=== PATIENT | female | born 1990 | race Caucasian/White ===

== ENCOUNTER → 2016-09-25 | Outpatient (CLI) | payer OTHER ==
[~2016-09-25] MED LIST: IRON PO; METH1CHW PO; MULT-506 PO; VITAMIN B12 PO
--- NOTE | 2016-09-25 16:35 | DIAGNOSTIC IMAGING REPORT ---
RIGHT KNEE 4 OR MORE CLINICAL HISTORY: RIGHT KNEE PAIN Right COMPARISON STUDY: None. FINDINGS: No fracture or dislocation within the right knee. Soft tissues are unremarkable. Cartilage spaces are maintained. Probable trace knee effusion. IMPRESSION: No fractures within the right knee. Suspect a trace knee effusion. Electronically signed by: Emmanuel Pike M.D. 09/25/2016 4:33 PM Dictated Date/Time: 09/25/2016 4:31 PM
== END | disposition home or self-care (01) ==
LOC: C.RDSM 09:20
PROVIDERS: ATTEND Internal Medicine
DX: M25.561 Pain in right knee (principal)

== ENCOUNTER → 2016-09-26 | Outpatient (CLI) | payer OTHER ==
--- NOTE | 2016-09-26 20:04 | DIAGNOSTIC IMAGING REPORT ---
MRI OF THE RIGHT KNEE WITHOUT CONTRAST CLINICAL HISTORY: Lateral right knee pain following injury. Positive Fran's. COMPARISON STUDY: Right knee radiographs September 25, 2016. TECHNIQUE: Utilizing a 1.5 Rere magnet and dedicated coil, multiplanar, multiecho imaging of the right knee was performed without intravenous or intraarticular contrast. FINDINGS: Alignment of the right knee is anatomic. Extensor mechanism is intact. There is a trace joint effusion. No loose bodies are identified. The cruciate and collateral ligaments are intact. The medial meniscus is intact. There is no medial meniscal tear. The inferior periphery of the posterior horn of the lateral meniscus is truncated. An intrasubstance tear is not identified. There is mild cartilage signal abnormality within the patellofemoral compartment. There is minimal cartilage signal abdomen within the lateral compartment. No mass or fluid collection shown adjacent to the right knee. There is minimal edema within the soft tissues adjacent to the distal right femur, a nonspecific finding. There may be minimal edema between the proximal right tibia and fibula. IMPRESSION: 1. Intact cruciate and collateral ligaments of the right knee. 2. Truncation of the posterior horn of the lateral meniscus, as described above. This is probably within normal limits. A meniscal tear could appear similar although is considered less likely. No definite meniscal tear. 3. Mild chondrosis within the lateral and patellofemoral compartments. 4. Trace joint effusion. Electronically signed by: Toby Cheng M.D. 09/26/2016 8:01 PM Dictated Date/Time: 09/26/2016 7:49 PM
== END | disposition home or self-care (01) ==
LOC: C.MRI 18:43
PROVIDERS: ATTEND Internal Medicine
DX: M25.561 Pain in right knee (principal)

== ENCOUNTER → 2016-10-06 | Day surgery (SDC) | payer OTHER ==
[2016-10-05 08:44] VITALS: Ht 177.8 cm; Wt 67.3 kg
[~2016-10-06] VITALS: Ht 177.8 cm; Wt 67.3 kg
[~2016-10-06] MED LIST changes: +ATROPINE SULFATE 0.1 MG/ML 5ML SYR IV PRN; +BUPIVACAINE/EPINEPHRINE 0.5% MPF 1:200,000 30 ML VIAL ONE; +CEFAZOLIN 2000 MG/60 ML D5W IV SCH; +DEXAMETHASONE SOD INJ 4 MG/ML VIAL ONE; +EpHEDrine SULFATE INJ 50 MG/ML AMP IV PRN; +FENTANYL CITRATE INJ 50 MCG/1 ML 2 ML VIAL IV PRN; +FENTANYL CITRATE INJ 50 MCG/1 ML 2 ML VIAL ONE; +FLUMAZENIL 0.1 MG/1 ML 10 ML VIAL IV PRN; +HYDROmorphone INJ 1 MG/ML SYR ONE; +HYDROmorphone INJ 2 MG/ML SYR/VIAL IV PRN; +KETOROLAC TROMETHAMINE 30 MG/ML VIAL ONE; +LABETALOL HCL IV 5 MG/ML 20ML IV PRN; +LACTATED RINGER'S 1000ML 1,000 ML IV SCH; +LIDOCAINE HCL 2% 2 ML VIAL (20MG/ML) ONE; -METH1CHW PO; +MIDAZOLAM HCL 1 MG/ML 2ML VIAL ONE; +MoRPHine SULFATE PF 1 MG/ML 10 ML AMP/VIAL ONE; +NALOXONE HCL 0.4 MG/1 ML VIAL/CARP IV PRN; +ONDANSETRON INJ 2 MG/ML 2 ML VIAL IV PRN; +ONDANSETRON INJ 2 MG/ML 2 ML VIAL ONE; +PHENYLEPHRINE 100MCG/ML 5ML SYR IV PRN; +PROPOFOL IV EMULSION 10 MG/ML 20 ML VIAL IV ONE; +SODIUM CHLORIDE 0.9% 1000ML 1,000 ML IV SCH
--- NOTE | 2016-10-06 07:26 | History & Physical Bridge Note ---
H&P Re-Evaluation Bridge Note: I have examined the patient, reviewed the History & Physical and in the interval since the performance of the History & Physical I have noted the following changes of clinical significance: No changes noted. Advised that if meniscus is not surgically torn hopefully she will not continue with pain as this would be a biomechanical/training issue.
--- NOTE | 2016-10-06 07:28 | Discharge Instructions ---
Discharge Instructions Visit Reason for Visit: Right Knee Lateral Meniscus Tear Discharge Discharge Diagnosis / Problem: joint dyfunction/meniscus degeneration Discharge Goals Goal(s): Decrease discomfort, Improve function Medications Stopped Medications Name(s): na Restart Stopped Medication(s): use scripts as directed Activity Recommendations Activity Limitations: as noted below Lifting Limitations: until after follow-up appointment Exercise/Sports Limitations: until after follow-up appointment May Resume Sexual Activity: when tolerated Shower/Bathe: keep incision dry Driving or Machine Use: resume 3 days after discharge Weightbearing Status: Right weightbearing (as tolerated) Anesthesia . Post Anesthesia Instructions: If you have had General Anesthesia or IV Sedation: * Do not drive today. * Resume driving when surgeon permits. * Do not make important decisions or sign legal documents today. * Call surgeon for: 1. Temperature elevations greater than 101 degrees F. 2. Uncontrollable pain. 3. Excessive bleeding. 4. Persistent nausea and vomiting. 5. Medication intolerance (nausea, vomiting or rash). * For nausea and vomiting use only clear liquids such as: tea, soda, bouillon until nausea subsides, then gradually increase diet as tolerated. * If you have any concerns or questions, call your surgeon's office. If physician is unavailable and it is an emergency, call 911 or go to the nearest emergency room. . Instructions / Follow-Up Instructions / Follow-Up The following are instructions to follow after your Arthroscopic Knee Surgery. ACTIVITY RECOMMENDATIONS: * Minimize activity until your first visit after surgery. * No excessive walking, jogging, sports or laboring. * Return to activity is individualized. Most patients are able to return to every day activities within one month. * Return to sports or intensive labor usually occurs at 2-3 months. * Driving is not permitted until at least your first postoperative visit at a minimum. Please ask your doctor when it is safe to resume driving. If you have an automatic vehicle and your left leg has been operated on, then you may begin driving as soon as you are comfortable and can drive safely. SCHOOL/WORK RECOMMENDATIONS: * You may return to sedentary work or school when you are feeling more comfortable. This is usually 3-7 days after surgery. * Expect increased discomfort with increased activity. Continue to elevate and ice the leg as much as possible. MEDICATIONS: * You will have a prescription for pain medication and an anti-inflammatory medication after surgery. * Use the pain medication for severe pain and the anti-inflammatory for less severe pain. Once the pain medication has run out, try to use the anti-inflammatory medication. If this is not effective, contact the office for assistance. * The pain medication may cause nausea, constipation and drowsiness. You should see how they affect you before driving or similar activity. * The anti-inflammatory medication may cause stomach upset and bleeding. If this occurs let your doctor know immediately . * Take a stool softener like Colace or a laxative like Senokot to prevent constipation. DIET: * Resume previous diet. SPECIAL CARE: ICE: You have the option of an ice cooler, gel packs or ice bags. * If you have an ice cooler, refer to the instructions for that device. The ice cooler may be used continuously. * If you do not have an ice cooler, you will need to use ice bags or gel packs. Do not apply ice directly to the skin. Use a thin dressing or randi shirt between the skin and ice bag. Apply ice for 20-30 minutes and repeat every 2-4 hours. This is especially important for the first 7-10 days after surgery. Once the pain improves, use ice as needed. ELEVATION: * Keep your leg elevated at or above the level of your heart as much as possible. * Expect some increased discomfort and swelling if you are standing for any length of time. * When lying down, avoid placing anything under your knee. Rather, prop your leg up by placing several pillows under your heel or calf. DRESSING: * Your dressing will be changed at your first therapy appointment approximately 4-5 days after surgery. Band-aids, tape strips or gauze may be applied. You may then change your dressing daily. * Reapply dressing followed by the Mark wrap or Tubi-print line feeder stockinet and EBIce cooling pad (if chosen). * Always wash your hands prior to touching the incision area. * Once the stitches are removed, you may leave the wound open to air or cover with an Mark wrap or Tubi-print line feeder stockinet. * If you have been given a white elastic stocking (ERNESTO hose), wear as much as possible for the first 1-3 weeks depending on swelling. * Expect some bloody drainage for the first few days after surgery. * Leave the tape strips, if present, in place for 5-7 days. * Band-aids and gauze may be changed daily. CRUTCHES: * You will need to use crutches after surgery. * You may gradually progress to full weight bearing as tolerated and wean off the crutches unless otherwise advised. * Your therapist can provide assistance weaning off crutches. * Patients who have a microfracture done may need to be toe-touch weight- bearing for 4-6 weeks. BATHING: * You may shower or sponge-bathe immediately after surgery. * The dressing will need to be covered with a plastic bag or plastic wrap until the dressing is changed on the fourth or fifth day after surgery. * Once the dressing has been changed on the fourth or fifth day after surgery, you may shower and get the incision wet. * Wash with regular soap and water. * Do not bathe (submerge the incision), soak, swim or use a hot tub until the incision is completely healed over with normal skin and the doctor has given the OK to proceed. * There is no need to apply any ointments, powders or salves to your incision. * Do not apply alcohol or hydrogen peroxide directly to the incision. * Diluted peroxide (50:50 mixture with sterile saline) may be used to clean dried blood from around the incision area. BRACE: * Bracing is generally not needed after routine Arthroscopic Knee surgery. THERAPY: * You will begin therapy four or five days after surgery. * Organized therapy with the therapist is important for the first 4-6 weeks after surgery. During that time you will attend therapy 1-3 times per week. * You will also need to do daily exercises for range of motion and strength as instructed. PROBLEMS/QUESTIONS: * If you have any problems such as severe pain, numbness, tingling or high fevers or if you have any questions, please contact the office at [phone]. * It is not uncommon to have some numbness and tingling after the surgery especially if you have had a nerve block done. This should gradually improve over the first 1- 2 days. If this persists longer or worsens please contact the office. FOLLOW UP VISIT: * If not already scheduled, please call the office at to schedule a follow-up appointment for 10 days, 6 weeks and 3 months after surgery. Diet Recommendations Recommended Home Diet: no limitations, resume previous diet Procedures Procedures Performed: see op note Pending Studies Studies pending at discharge: no List of pending studies: na Medical Emergencies . Who to Call and When: Medical Emergencies: If at any time you feel your situation is an emergency, please call 911 immediately. . Non-Emergent Contact Non-Emergency issues call your: Specialist Call Non-Emergent contact if: temperature is above 101.5 . . "Provider Documentation" section prepared by Miguel Angel Delgado.
--- NOTE | 2016-10-06 08:28 | [facility] Post Operative Brief Note ---
Immediate Operative Summary Operative Date Oct 06, 2016. Pre-Operative Diagnosis Tear lateral meniscus Post-Operative Diagnosis same Procedure(s) Performed Right Knee Arthroscopy, Partial Lateral Meniscus repair Surgeon Sr Delgado Dental Laboratory Assistant Surgeon(s) Karsten Wilson PA-C Estimated Blood Loss trace Findings hiatal extension with hypermobile lateram meniscus with secondary synovitis Fluids (cc crystalloids) 500cc Specimens 0 Drains none Anesthesia LMA Complication(s) None Disposition Recovery Room / PACU
[2016-10-06] MEDS: MEPERIDINE HCL 25 MG/ML CARP IV PRN ×2 (08:58→09:05)
--- NOTE | 2016-10-06 09:00 | OPERATIVE REPORT ---
DATE OF OPERATION: 10/06/2016 PREOPERATIVE DIAGNOSIS: Lateral meniscus tear, right knee. POSTOPERATIVE DIAGNOSIS: Same with popliteal hiatus extension and hypermobile posterior half lateral meniscus. OPERATION PERFORMED: 1. Exam under anesthesia. 2. Diagnostic arthroscopy. 3. Arthroscopic all inside lateral meniscus repair. SURGEON: Dr. Delgado. BLOW PIT OPERATOR: Lionel Wilson PA-C. No resident or fellow available. 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 At this point in time, she feels like she cannot train anymore and she wanted the surgical option to try to get back to activity as soon as possible. Options were discussed with her concerning partial meniscectomy versus repair. Quick recovery will be with partial meniscectomy, longer recovery with meniscus repair. She understood this. OPERATION AND FINDINGS: PROCEDURE: The patient was properly identified, site verified, consent verified, 2 grams of Ancef confirmed as being given. The knee was examined revealing no ligamentous instability. There was scant effusion. She was then sterilely injected with 20 mL of 0.5% Marcaine with epinephrine and 5 mg of Duramorph for postoperative pain control. The leg was then prepped and draped in usual routine fashion. The inframedial and inferolateral portals were then marked. They were injected with 4 mL of 0.25% Marcaine with epinephrine. Inspection of the joint revealed some heterotopic synovitis in the anterior compartment. This was resected as well as the medial plica which was trimmed, it was not completely resected. The ACL and PCL were normal. The medial compartment was normal including the medial meniscus. Lateral compartment was thoroughly inspected. There was some minor fraying of the free edge of the meniscus which was resected with the shaver. There was significant synovitis along the undersurface of the meniscus, particularly in the posterior half and when this was carefully one could feel a cleft of an incomplete tear. There was also an extension of the popliteal hiatus with hypermobility of the posterior half of the meniscus. The meniscus was also elevated off the tibial surface in an abnormal way as well. This area was then all rasped and then 2 all inside sutures were utilized, Fagan /Nephew. An excellent repair was obtained. The popliteal hiatus was restored to normal. The hypermobility of the meniscus was then eliminated. Looking along the lateral gutter down the popliteal hiatus one could see the secondary synovitis. It was also evident from the potential hypermobility and potential tearing of the meniscus. Once this was all documented the procedure was terminated. All instruments and fluid were removed. The portals closed with 3-0 nylon and dressed appropriately with Xeroform, 4 x 4 gauze, ABD pads, Webril and above knee ERNESTO stocking and a knee immobilizer. She will be kept without range of motion for 2 weeks and then advance range of motion to 90 degrees as tolerated and then after 5 weeks advance to full flexion as tolerated. She will be weightbearing in extension with knee immobilizer. I expect her to return to full activity about 12 weeks. I attest to the content of the Intraoperative Record and any orders documented therein. Any exceptions are noted below. JIM
--- NOTE | 2016-10-06 09:20 | OPERATIVE REPORT ---
DATE OF OPERATION: 10/06/2016 PREOPERATIVE DIAGNOSIS: Right knee lateral meniscal tear. POSTOPERATIVE DIAGNOSIS: Right knee same. PROCEDURE: Right knee arthroscopy with lateral meniscal repair. SURGEON: Dr. Delgado. ASSISTANT CHIEF TRAIN DISPATCHER: Lionel Wilson PA-C. HISTORY OF PRESENT ILLNESS: This 26-year-old white female presented to the office with complaints of lateral right knee pain. 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 X-ray and MRI were obtained. She elected to proceed with surgical intervention after being educated about potential risks and outcomes. OPERATION: The patient was taken to the operating room where she was given general anesthetic. She was prepped and draped in the usual sterile fashion. Please see Dr. Delgado's operative report for specifics of the procedure. I was present for the entire case from initial patient positioning through final wound closure. Assistance was provided in patient positioning, arthroscopy and final wound closure. The patient was taken to the recovery room in satisfactory condition. I attest to the content of the Intraoperative Record and any orders documented therein. Any exceptio ns are noted below.
--- NOTE | 2016-10-06 09:37 | Anesthesia Progress Nt - [facility] ---
Anesthesia Post Op Note Date & Time Oct 06, 2016 at 09:37 Vital Signs Pain Intensity: 3 Vital Signs Past 12 Hours Date Time Temp Pulse Resp B/P Pulse Ox O2 Delivery O2 Flow Rate FiO2 10/06/16 08:35 36.5 92 16 96/48 99 Diffusion Mask 6 10/06/16 07:15 37.0 51 16 115/56 100 Room Air Notes Mental Status: alert / awake / arousable, participated in evaluation Pt Amnestic to Procedure: Yes Nausea / Vomiting: adequately controlled, improving with treatment Pain: adequately controlled Airway Patency, RR, SpO2: stable & adequate BP & HR: stable & adequate Hydration State: stable & adequate Anesthetic Complications: no major complications apparent
[2016-10-06 09:52] VITALS: TEMP 36.7
[2016-10-06 10:56] VITALS: BP 112/61; PULSE 46; O2SAT 100
== END | disposition home or self-care (01) ==
LOC: X.SURG 06:53
PROVIDERS: ATTEND Physical Medicine & Rehabilitation Sports Medicine
DX: S83.281A Other tear of lateral meniscus, current injury, right knee, initial encounter (principal); X58.XXXA Exposure to other specified factors, initial encounter

== ENCOUNTER 2016-11-26 21:45 | Emergency (ER) | payer OTHER ==
[~2016-11-26] VITALS: Ht 177.8 cm; Wt 74.1 kg
[~2016-11-26 21:45] MED LIST changes: -ATROPINE SULFATE 0.1 MG/ML 5ML SYR IV PRN; -BUPIVACAINE/EPINEPHRINE 0.5% MPF 1:200,000 30 ML VIAL ONE; -CEFAZOLIN 2000 MG/60 ML D5W IV SCH; -DEXAMETHASONE SOD INJ 4 MG/ML VIAL ONE; -EpHEDrine SULFATE INJ 50 MG/ML AMP IV PRN; -FENTANYL CITRATE INJ 50 MCG/1 ML 2 ML VIAL IV PRN; -FENTANYL CITRATE INJ 50 MCG/1 ML 2 ML VIAL ONE; -FLUMAZENIL 0.1 MG/1 ML 10 ML VIAL IV PRN; -HYDROmorphone INJ 1 MG/ML SYR ONE; -HYDROmorphone INJ 2 MG/ML SYR/VIAL IV PRN; -KETOROLAC TROMETHAMINE 30 MG/ML VIAL ONE; -LABETALOL HCL IV 5 MG/ML 20ML IV PRN; -LACTATED RINGER'S 1000ML 1,000 ML IV SCH; -LIDOCAINE HCL 2% 2 ML VIAL (20MG/ML) ONE; -MIDAZOLAM HCL 1 MG/ML 2ML VIAL ONE; -MoRPHine SULFATE PF 1 MG/ML 10 ML AMP/VIAL ONE; -NALOXONE HCL 0.4 MG/1 ML VIAL/CARP IV PRN; -ONDANSETRON INJ 2 MG/ML 2 ML VIAL IV PRN; -ONDANSETRON INJ 2 MG/ML 2 ML VIAL ONE; -PHENYLEPHRINE 100MCG/ML 5ML SYR IV PRN; -PROPOFOL IV EMULSION 10 MG/ML 20 ML VIAL IV ONE; -SODIUM CHLORIDE 0.9% 1000ML 1,000 ML IV SCH
[2016-11-26 21:50] VITALS: TEMP 36.6; Ht 177.8 cm; Wt 74.1 kg
[2016-11-26] MEDS ORDERED: LORAZEPAM 2 MG/ML 1 ML VIAL IV STA (21:56)
[2016-11-26] MEDS ORDERED: SODIUM CHLORIDE 0.9% 1000ML 1,000 ML IV ONE (22:00)
[2016-11-26 22:34] LABS: BASO % 0.7 %; BASO ABS # 0.06 K/uL (0-0.2); COMPLETE YES; HEMATOCRIT 39.5 % (37-47); IG% 0.3 %; LYMPH % 20.1 %; LYMPH ABS # 1.83 K/uL (1.2-3.4); MEAN CELL VOLUME 89.8 fL (80-100); MEAN CORPUSCULAR HEMOGLOBIN 31.4 pg (25-34); MEAN CORPUSCULAR HGB CONC 34.9 g/dl (32-36); MEAN PLATELET VOLUME 9.4 fL (7.4-10.4); MONO % 9.1 %; NEUT % 63.8 %; PLATELET COUNT 335 K/uL (130-400)
--- NOTE | 2016-11-26 22:36 | DIAGNOSTIC IMAGING REPORT ---
CHEST ONE VIEW PORTABLE CLINICAL HISTORY: Chest pain. COMPARISON STUDY: Chest radiograph September 19, 2014. FINDINGS: Lung volumes are normal. Lungs are clear. There is no pneumothorax or pleural effusion. Cardiac size is normal. Mediastinal contours are normal. There is no evidence of pulmonary edema. IMPRESSION: No acute cardiopulmonary findings. Electronically signed by: Toby Cheng M.D. 11/26/2016 10:35 PM Dictated Date/Time: 11/26/2016 10:34 PM
[2016-11-26 22:53] LABS: BUN/CREATININE RATIO 12.2 (10-20); CREATININE 0.83 mg/dl (0.60-1.20); MAGNESIUM 2.2 mg/dl (1.8-2.4); POTASSIUM 3.7 mmol/L (3.5-5.1)
[2016-11-26 23:02] LABS: THYROID STIMULATING HORMONE 0.528 uIu/ml (0.300-4.500)
[2016-11-26 23:23] LABS: URINE APPEARANCE CLEAR (CLEAR); URINE BILIRUBIN NEG (NEG); URINE COLOR YELLOW; URINE NITRITE NEG (NEG); URINE PH 6.5 (4.5-7.5); URINE SPECIFIC GRAVITY 1.002 (1.000-1.030); UROBILINOGEN NEG (NEG); ZZUR CULT IF INDIC CLEAN CATCH NO
[2016-11-26 23:33] LABS: MANUAL MICROSCOPIC REQUIRED? NO; REVIEW REQ? NO
[2016-11-26 23:43] LABS: LYME DISEASE AB IGG NEG (NEG); LYME DISEASE AB IGM NEG (NEG)
[2016-11-26 23:55] LABS: BENZODIAZEPINE, URINE NEG (NEG); COCAINE,URINE NEG (NEG); PHENCYCLIDINE, URINE NEG (NEG)
--- NOTE | 2016-11-27 01:11 | EMERGENCY ROOM VISIT NOTE ---
ED Visit Note First contact with patient: 21:50 The patient was seen and examined with Antoine Gillespie. I agree with the history, physical and findings. Please see the note for disposition and details. The patient had twitching like rhythmic motions of her stomach muscles almost like she was doing a sit up. This seemed to improve significantly when she got Ativan and fell asleep as the movements stopped. When she woke up by being stimulated to ask questions the movement would start again. Nursing noted that she would have long periods without the movement but when she would be questioned, especially in the presence of her friend the motions concerning again. The patient had an unremarkable workup with regards to her ECG, blood testing, and imaging. Nursing also noted that the patient had no movements during her trip to radiology and back. She denies any recent stressors. She states she has been in good health. The exact etiology is not obvious however no life-threatening issues are seen. There is no seizure activity. Her rn cardiac rehab was normal.
[2016-11-27 01:32] VITALS: BP 122/62; PULSE 59; O2SAT 98
--- NOTE | 2016-11-27 05:20 | EMERGENCY ROOM VISIT NOTE ---
History First contact with patient: 21:50 Chief Complaint: OTHER COMPLAINT Stated Complaint: CONVULSIONS, MUSCLE CRAMPING History of Present Illness The patient is a 26 year old female who presents to the Emergency Room with complaints of muscle cramping/spasms that have been ongoing for about the past hour. The patient states that she was at home with her significant other, when she began having rhythmic spasms of her chest and abdomen. The patient has not had fever or chills. She feels a warm sensation across her chest, but is otherwise without significant complaints. She does not have numbness or paresthesias. She denies substance abuse, and has not taken anything over-the- counter for her symptoms. She has not had anything like this in the past. The patient is usually healthy and without significant complaints. The patient rates her current discomfort a 4/10. Review of Systems More than 10 systems were reviewed and otherwise negative with the exception of history of present illness. Past Medical/Surgical History Medical Problems: (1) Bulimia (2) Depression Family History No pertinent family history Social History Smoking Status: Never Smoker Current/Historical Medications No Active Prescriptions or Reported Meds Allergies Coded Allergies: Avocado (Verified Allergy, Intermediate, Abdominal pain for days, 11/26/16) Physical Exam Vital Signs Date Time Temp Pulse Resp B/P Pulse Ox O2 Delivery O2 Flow Rate FiO2 11/27/16 01:32 59 17 122/62 98 11/26/16 23:47 70 18 127/51 98 Room Air 11/26/16 22:02 78 11/26/16 21:50 36.6 71 20 133/81 95 Room Air Pain Rating (0-10): 0 Physical Exam VITALS: Vitals are noted on the nurse's note and reviewed by myself. Vital signs stable. GENERAL: Well-developed, well-nourished, white female, who has a spasm/tic of her abdomen and chest, causing her to perform a "sit up" like movement. HEAD: Normocephalic atraumatic. EARS: External ear normal. External auditory canals clear, tympanic membranes pearly vilchis without erythema or effusion bilaterally. EYES: Pupils equal round and reactive to light and accommodation. Conjunctivae without injection, sclerae without icterus. Extraocular movements intact. NOSE: Patent, turbinates without inflammation or discharge. MOUTH: Mucous membranes moist. Tonsils are not enlarged. Pharynx without erythema, blood, or exudate. Uvula midline. Airway patent. NECK: Supple without nuchal rigidity. No lymphadenopathy. No thyromegaly. Cervical spine is nontender. HEART: Regular rate and rhythm without murmurs gallops or rubs. LUNGS: Clear to auscultation bilaterally without wheezes, rales or rhonchi. No retractions or accessory muscle use. ABDOMEN: Positive normal bowel sounds x 4. Soft, nontender, without masses or organomegaly. No guarding or rebound tenderness. MUSCULOSKELETAL: No muscle atrophy, erythema, or edema noted. Full range of motion without joint tenderness in all extremities. Medical Decision & Procedures ER Provider Diagnostic Interpretation: CHEST ONE VIEW PORTABLE CLINICAL HISTORY: Chest pain. COMPARISON STUDY: Chest radiograph September 19, 2014. FINDINGS: Lung volumes are normal. Lungs are clear. There is no pneumothorax or pleural effusion. Cardiac size is normal. Mediastinal contours are normal. There is no evidence of pulmonary edema. IMPRESSION: No acute cardiopulmonary findings. Preliminary Findings Only See Final Report For Complete Findings CT HEAD: Comparison is made to CT head dated 09/19/14. No ICH, mass effect, or edema. Vilchis-white matter differentiation preserved. No evidence of skull fracture. Clear paranasal sinuses and mastoid air cells. Laboratory Results 11/26/16 22:20 Red Blood Count 4.40, Mean Corpuscular Volume 89.8, Mean Corpuscular Hemoglobin 31.4, Mean Corpuscular Hemoglobin Concent 34.9, Mean Platelet Volume 9.4, Neutrophils (%) (Auto) 63.8, Lymphocytes (%) (Auto) 20.1, Monocytes (%) (Auto) 9.1, Eosinophils (%) (Auto) 6.0, Basophils (%) (Auto) 0.7, Neutrophils # (Auto) 5.80, Lymphocytes # (Auto) 1.83, Monocytes # (Auto) 0.83, Eosinophils # (Auto) 0.55, Basophils # (Auto) 0.06 11/26/16 22:20 Test 11/26/16 22:20 11/26/16 22:25 11/26/16 23:11 White Blood Count 9.10 K/uL (4.8-10.8) Red Blood Count 4.40 M/uL (4.2-5.4) Hemoglobin 13.8 g/dL (12.0-16.0) Hematocrit 39.5 % (37-47) Mean Corpuscular Volume 89.8 fL (80-100) Mean Corpuscular Hemoglobin 31.4 pg (25-34) Mean Corpuscular Hemoglobin Concent 34.9 g/dl (32-36) Platelet Count 335 K/uL (130-400) Mean Platelet Volume 9.4 fL (7.4-10.4) Neutrophils (%) (Auto) 63.8 % Lymphocytes (%) (Auto) 20.1 % Monocytes (%) (Auto) 9.1 % Eosinophils (%) (Auto) 6.0 % Basophils (%) (Auto) 0.7 % Neutrophils # (Auto) 5.80 K/uL (1.4-6.5) Lymphocytes # (Auto) 1.83 K/uL (1.2-3.4) Monocytes # (Auto) 0.83 K/uL (0.11-0.59) Eosinophils # (Auto) 0.55 K/uL (0-0.5) Basophils # (Auto) 0.06 K/uL (0-0.2) RDW Standard Deviation 40.4 fL (36.4-46.3) RDW Coefficient of Variation 12.4 % (11.5-14.5) Immature Granulocyte % (Auto) 0.3 % Immature Granulocyte # (Auto) 0.03 K/uL (0.00-0.02) Anion Gap 10.0 mmol/L (3-11) Est Creatinine Clear Calc Drug Dose 113.0 ml/min Estimated GFR () 114.4 Estimated GFR (Non- 98.7 BUN/Creatinine Ratio 12.2 (10-20) Calcium Level 9.0 mg/dl (8.5-10.1) Magnesium Level 2.2 mg/dl (1.8-2.4) Total Bilirubin 0.5 mg/dl (0.2-1) Aspartate Amino Transf (AST/SGOT) 22 U/L (15-37) Alanine Aminotransferase (ALT/SGPT) 23 U/L (12-78) Alkaline Phosphatase 76 U/L (45-117) Total Protein 7.7 gm/dl (6.4-8.2) Albumin 3.9 gm/dl (3.4-5.0) Globulin 3.8 gm/dl (2.5-4.0) Albumin/Globulin Ratio 1.0 (0.9-2) Thyroid Stimulating Hormone (TSH) 0.528 uIu/ml (0.300-4.500) Chemistry Specimen Hemolysis Lyme Disease IgG Antibody NEG (NEG) Lyme Disease IgM Antibody NEG (NEG) Bedside D-Dimer 58 ng/mlFEU (0-450) Bedside Troponin I 0.000 ng/ml (0-0.045) Urine Color YELLOW Urine Appearance CLEAR (CLEAR) Urine pH 6.5 (4.5-7.5) Urine Specific [place] 1.002 (1.000-1.030) Urine Protein NEG (NEG) Urine Glucose (UA) NEG (NEG) Urine Ketones NEG (NEG) Urine Occult Blood NEG (NEG) Urine Nitrite NEG (NEG) Urine Bilirubin NEG (NEG) Urine Urobilinogen NEG (NEG) Urine Leukocyte Esterase NEG (NEG) Urine Test NEG (NEG) Urine Opiates Screen NEG (NEG) Urine Methadone, Qualitative NEG (NEG) Urine Barbiturates NEG (NEG) Urine Phencyclidine (PCP) Level NEG (NEG) Ur Amphetamine/Methamphetamine NEG (NEG) MDMA (Ecstasy) Screen NEG (NEG) Urine Benzodiazepines Screen NEG (NEG) Urine Cocaine Metabolite NEG (NEG) Urine Marijuana (THC) NEG (NEG) Medications Administered Medications (Trade) Dose Ordered Sig/Henry Route Start Time Stop Time Status Last Admin Dose Admin Sodium Chloride (Nss 1000ml) 1,000 ml @ 999 mls/hr Q1H1M ONCE IV 11/26/16 22:00 11/26/16 23:00 DC 11/26/16 22:00 999 MLS/HR Lorazepam (Ativan Inj) 1 mg NOW STAT IV 11/26/16 21:56 11/26/16 21:59 DC 11/26/16 21:56 1 MG ED Course Physical exam and history were performed. Nursing notes and EMR were reviewed. Patient appears to have an odd rhythmic spasm that is causing her to perform an involuntary "sit up" like motion in her ER bed. This appears to be persisting and independent of action or motion. The patient examination otherwise appears unremarkable. She does report a flushing or warm-like sensation in her anterior chest. IV access was established and labs were obtained. EKG was performed and was normal sinus rhythm without acute ST elevation or ectopy. Chest x-ray was performed and did not show acute findings. The patient was hydrated with normal saline and given 1 mg IV Ativan for her symptoms. The patient was reevaluated multiple times in the course of her stay. Her blood work is as above and was reviewed. The patient does not have a significantly elevated white blood cell count, anemia, bandemia, or significant electrolyte imbalance. TSH shows a euthyroid state. Urine is without sign of infection or drug abuse. I discussed the case with my attending physician, Dr Villa, who also independently evaluated the patient. The patient was found to be resting quite comfortably after Ativan, and did not have her symptoms while she was asleep. Upon waking the patient she could return to having her spasm-like motion. We did elect to perform a CT scan of her head, which was without acute intracranial process. Nursing noted that the patient did not have her spasm while she was on the gurney going to and from CAT scan. She did not have any issues with performing the CAT scan. Upon return to the room her symptoms returned. Overall the patient does appear stable for discharge home. She is comfortable at rest and with sleeping. Her symptoms appear to wax and wane, and do not appear to represent an emergent life-threatening process. The patient did have a discussion about stressors in her life, as there could be a mental health component to this. The patient does not have any suicidal or homicidal ideation. She does not have any concern for her mental well-being at this time. The patient was asked to follow with her primary care physician in the next 1-2 days for recheck of her condition. She was otherwise invited back to the ER with any new, worsening, or concerning symptoms. The chart was completed utilizing [employer] Speech Voice Recognition Software. Grammatical errors, random word insertions, pronoun errors, and incomplete sentences are an occasional consequence of this system due to software limitations, ambient noise, and hardware issues. Any formal questions or concerns about the content, text, or information contained within the body of this dictation should be directly addressed to the provider for clarification. . Medical Decision Differential diagnosis: Etiologies such as cardiac ischemia, aortic dissection, pulmonary embolism, pneumonia, pneumothorax, musculoskeletal, infections, pericarditis, myocarditis , esophageal rupture, gastrointestinal, as well as others were entertained. Impression Primary Impression: Spasm Additional Impression: Non-cardiac chest pain Departure Information Dispostion Home / Self-Care Condition GOOD Prescriptions No Active Prescriptions or Reported Meds Forms HOME CARE DOCUMENTATION FORM, IMPORTANT VISIT INFORMATION Patient Instructions [facility] Additional Instructions You were seen and evaluated today on an emergency basis only. This is not a substitute for, or an effort to provide, complete comprehensive medical care. It is not possible to recognize and treat all injuries or illnesses in a single emergency department visit. For this reason it is recommended that you followup with your primary care physician in the next 1-2 days for recheck of your condition. Drink clear fluids and remain well hydrated. You are welcome to return to the emergency department anytime with new, worsening, or concerning symptoms. Problem Qualifiers
--- NOTE | 2016-11-27 06:33 | DIAGNOSTIC IMAGING REPORT ---
CT HEAD WITHOUT CONTRAST (CT) CLINICAL HISTORY: Seizure. Spasms. Twitching. COMPARISON STUDY: 09/19/2014 TECHNIQUE: Axial CT of the brain is performed from the vertex to the skull base. IV contrast was not administered for this examination. CT DOSE: 537.48 mGy.cm FINDINGS: No intra or extra-axial mass lesions are visualized. There is no CT evidence of acute cortical infarction. There is no evidence of midline shift. There is no acute hemorrhage. No calvarial fractures are visualized. There is no evidence of pathologic ventricular dilatation. There is no evidence of acute sinusitis IMPRESSION: Normal noncontrast head CT. Electronically signed by: Blayne Petty M.D. 11/27/2016 6:31 AM Dictated Date/Time: 11/27/2016 6:31 AM
== END 2016-11-27 01:36 | disposition home or self-care (01) ==
LOC: EDBD 21:45 → C.EDB 21:49
DX: R25.2 Cramp and spasm (principal); R07.89 Other chest pain; F32.9 Major depressive disorder, single episode, unspecified; F50.2 Bulimia nervosa